=== PATIENT | male | born 1970 | race Two or more races ===

== ENCOUNTER 2019-02-26 21:26 | Emergency (ER) | payer OTHER ==
[~2019-02-26] VITALS: Ht 165.1 cm; Wt 84.8 kg
[2019-02-26 21:40] VITALS: BP 122/77
[2019-02-26] MEDS ORDERED: ORPHENADRINE CITRATE 60 MG/2 ML VIAL. IM ONE (22:15)
[2019-02-26] MEDS ORDERED: KETOROLAC 60 MG/2 ML VIAL. IM ONE (22:15)
[2019-02-26] MEDS ORDERED: CYCL10TA2 PO (22:22)
[2019-02-26] MEDS ORDERED: PRED20TA PO (22:22)
--- NOTE | 2019-02-26 22:22 | PHYS DOC ---
Past Medical History Past Medical History: No Pertinent History (WAQAS STAUFFER APRN) Drug Use: None (WAQAS STAUFFER APRN) Attending Signature I have participated in the care of this patient and I have reviewed and agree with all pertinent clinical information above including history, exam, and recommendations. (MILKA TRAVIS MD) Adult General Chief Complaint Chief Complaint: [facility] HPI Patient is a 48 year old male accompanied by his , who presents to the emergency department with complaints of pain in his right shoulder, right arm and right side of his neck that hss gradually gotten worse after seeing a chiropractor 6 days ago. Patient states that sometimes he feels like his bicep spasms. Earlier tonight he had some tingling in his left index finger that has since gone away. He currently rates his pain as 7 out of 10 on the pain scale, he denies any alleviating factors. Pt denies any known injury. He states that the discomfort is worse with movement of his head or his arm. Patient denies any weakness of the affected extremity or hand. He also denies any fever, cough, shortness of breath, headache, vision changes, or sore throat. All other ROS is neg unless otherwise noted in HPI. (WAQAS STAUFFER APRN) Review of Systems Review of Systems See Above (WAQAS STAUFFER APRN) Current Medications Current Medications Current Medications Medications (Trade) Dose Ordered Sig/Denis Start Time Stop Time Status Last Admin Dose Admin Ketorolac Tromethamine (Toradol Im) 60 mg STK-MED ONCE 02/26/19 22:24 02/26/19 22:35 DC Orphenadrine Citrate (Norflex) 60 mg STK-MED ONCE 02/26/19 22:24 02/26/19 22:35 DC (MILKA TRAVIS MD) Allergies Allergies Allergies Coded Allergies Type Severity Reaction Last Updated Verified No Known Drug Allergies 02/26/19 No (MILKA TRAVIS MD) Physical Exam Physical Exam See Above Constitutional: Well developed, well nourished, no acute distress, non-toxic appearance. [] HENT: Normocephalic, atraumatic, bilateral external ears normal, nose normal. [] Eyes: PERRLA, EOMI, conjunctiva normal, no discharge. [] Neck: Normal range of motion, right paracervical TTP, no bony tenderness, supple, no stridor. [] Cardiovascular:Heart rate regular rhythm Lungs & Thorax: Respirations even and unlabored, no retractions, no respiratory distress Skin: Warm, dry, no erythema, no rash. [] Back: No tenderness Extremities: RUE No bony tenderness, no cyanosis, no clubbing, ROM intact, no edema, equal teaching aide bilat, strength 5/5 of BUE. [] Neurologic: Alert and oriented X 3, normal motor function, normal sensory function, no focal deficits noted. [] Psychologic: Affect normal, judgement normal, mood normal. [] (WAQAS STAUFFER APRN) Current Patient Data Vital Signs Vital Signs Date Time Temp Pulse Resp B/P (MAP) Pulse Ox O2 Delivery O2 Flow Rate FiO2 02/26/19 21:40 97.7 71 18 122/77 (92) 98 Room Air 97.7 (MILKA TRAVIS MD) EKG EKG [] (WAQAS STAUFFER APRN) Radiology/Procedures Radiology/Procedures [] (WAQAS STAUFFER APRN) Course & Med Decision Making Course & Med Decision Making Pertinent Labs and Imaging studies reviewed. (See chart for details) [] (WAQAS STAUFFER APRN) Dragon Disclaimer Dragon Disclaimer This electronic medical record was generated, in whole or in part, using a voice recognition dictation system. (WAQAS STAUFFER APRN) Departure Departure Impression: Primary Impression: Cervical radiculopathy, acute Disposition: 01 HOME, SELF-CARE Condition: STABLE Referrals: NO PCP (PCP) Patient Instructions: Cervical Radiculopathy, [id number] Additional Instructions: Fill the prescriptions and use as directed. Follow up with your primary care doctor for further evaluation and treatment. Stop going to the chiropractor until you are released by your primary care doctor. Return to the ER if symptoms worsen. Scripts Cyclobenzaprine Hcl (CYCLOBENZAPRINE HCL) 10 Mg Tablet 1 TAB PO TID PRN for MUSCLE PAIN for 10 Days, #30 TAB 0 Refills Prov: WAQAS STAUFFER APRN 02/26/19 Prednisone (PREDNISONE) 20 Mg Tablet 3 TAB PO DAILY for 3 Days, #9 TAB 0 Refills Prov: WAQAS STAUFFER APRN 02/26/19 WAQAS STAUFFER APRN Feb 26, 2019 22:22 MILKA TRAVIS MD Mar 01, 2019 18:18
[2019-02-26] MEDS ORDERED: KETOROLAC 60 MG/2 ML VIAL. ONE (22:24)
[2019-02-26] MEDS ORDERED: ORPHENADRINE CITRATE 60 MG/2 ML VIAL. ONE (22:24)
== END 2019-02-26 22:31 | disposition home or self-care (01) ==
LOC: ER 21:26
DX: M54.12 Radiculopathy, cervical region (principal)
CPT/HCPCS: 96372; 99284; J1885; J2360